=== PATIENT | male | born 1945 | race Caucasian/White ===

== ENCOUNTER 2016-05-06 19:56 | Observation (INO) | payer MEDICAID, OTHER ==
[2016-05-06] MEDS ORDERED: Sodium Chloride 0.9% 10 ML Syringe FLUSH PRN ×2 (20:23→22:47)
[2016-05-06] MEDS ORDERED: Sodium Chloride 0.9% 2.5 ML Syringe FLUSH PRN ×2 (20:23→22:47)
[2016-05-06] MEDS ORDERED: Nitroglycerin 2% Oint 1 GM UD Packet TOP ONE (20:23)
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
[2016-05-06] MEDS ORDERED: atorvaSTATin 20 MG Tab PO SCH (21:00)
[2016-05-06] MEDS ORDERED: Morphine 2 MG/ML Syringe IVPUSH PRN (22:47)
[2016-05-06] MEDS ORDERED: Ondansetron 4 MG/2 ML SDV IVPUSH PRN (22:47)
[2016-05-06] MEDS: Labetalol 100 MG Tab PO SCH (23:13)
[2016-05-07] MEDS ORDERED: Pantoprazole 40 MG Tab.CR PO SCH (07:30)
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
[2016-05-07] MEDS: Labetalol 100 MG Tab PO SCH (08:49)
[2016-05-07] MEDS ORDERED: Hydrochlorothiazide 12.5 MG Cap PO SCH (09:00)
[2016-05-07] MEDS ORDERED: Lisinopril 10 MG Tab PO SCH (09:00)
[2016-05-07] MEDS ORDERED: cloNIDine 0.1 MG Tab PO SCH (09:00)
[2016-05-07 13:07] VITALS: BP 117/69
--- NOTE | 2016-05-07 14:07 | CR ---
EXAM DATE: 05/06/16 PATIENT'S AGE: 70 Patient: BIBI VERDUZCO Facility: [place], [place] Site . Site : [id number] Study: XRay Chest [id number]/16/2017 8:50:05 PM Ordering Physician: Mohit Doherty Final Report: INDICATION: chest pain TECHNIQUE: Chest 1 view. COMPARISON: 03/21/16 FINDINGS: Cardiovascular and mediastinum: Heart size and vasculature are normal in caliber and appearance. Mediastinum is within normal limits. Lungs and pleural space: Lungs are clear. No sign of infiltrate or mass. No sign of pleural effusion. No pneumothorax. Bones and soft tissues: No significant findings. IMPRESSION: Unremarkable chest. Dictated by: Alin Murphy MD @ 05/06/2016 20:54:55 (Electronic Signature) Report Signed by Proxy and Original Signed Document filed in the Medical Record. MTDD
[2016-05-07] MEDS ORDERED: Aspirin 81 MG Tab.Chew PO SCH (21:00)
[2016-05-07] MEDS ORDERED: atorvaSTATin 20 MG Tab PO SCH (21:00)
== END 2016-05-07 12:45 ==
LOC: MW.ED 19:56 → MW.MS 21:38
PROVIDERS: ADMIT Internal Medicine; ATTEND Internal Medicine
DX: R07.89 Other chest pain (principal); I10 Essential (primary) hypertension; K29.80 Duodenitis without bleeding; B96.81 Helicobacter pylori [H. pylori] as the cause of diseases classified elsewhere; I69.30 Unspecified sequelae of cerebral infarction; I25.2 Old myocardial infarction; E78.5 Hyperlipidemia, unspecified; I25.10 Atherosclerotic heart disease of native coronary artery without angina pectoris; E78.00 Pure hypercholesterolemia, unspecified; K21.9 Gastro-esophageal reflux disease without esophagitis; Z87.891 Personal history of nicotine dependence; Z79.82 Long term (current) use of aspirin; Z79.899 Other long term (current) drug therapy; Z98.890 Other specified postprocedural states
CPT/HCPCS: 36415; 71010; 80053; 82150; 83690; 84484; 85025; 85610; 86677; 93005; 99285; A9270; G0378

== ENCOUNTER 2016-07-01 11:31 | Emergency (ER) | payer BC, MEDICAID, MEDICARE, OTHER ==
[2016-07-01] MEDS ORDERED: Aspirin 81 MG Tab.Chew PO ONE (11:33)
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
[2016-07-01] MEDS ORDERED: Sodium Chloride 0.9% 250 ML IV ONE (12:22)
[2016-07-01] MEDS ORDERED: Metoprolol Tartrate 5 MG/5 ML SDV IVPUSH SCH (12:30)
[2016-07-01] MEDS ORDERED: Nitroglycerin 0.4 MG Tab.SL SL PRN (13:03)
[2016-07-01] MEDS ORDERED: Nitroglycerin 0.4 MG Tab.SL ONE (13:03)
[2016-07-01] MEDS ORDERED: Nitroglycerin 2% Oint 1 GM UD Packet TOP ONE (13:04)
[2016-07-01 13:15] VITALS: BP 141/63
--- NOTE | 2016-07-01 13:34 | CR ---
EXAMINATION: Portable chest radiograph. HISTORY: Chest pain. FINDINGS: The trachea is midline. The cardiomediastinal silhouette is within normal limits. No pulmonary infil trates, effusions or pneumothorax. There is scarring within the apices. Osseous structures appear unremarkable. IMPRESSION: No acute cardiopulmonary process.
== END 2016-07-01 13:45 | disposition other institution (70) ==
LOC: MW.ED 11:31
DX: I24.9 Acute ischemic heart disease, unspecified (principal); E78.00 Pure hypercholesterolemia, unspecified; I25.10 Atherosclerotic heart disease of native coronary artery without angina pectoris; I10 Essential (primary) hypertension; I25.2 Old myocardial infarction; Z87.891 Personal history of nicotine dependence; Z79.82 Long term (current) use of aspirin; Z79.899 Other long term (current) drug therapy; Z86.73 Personal history of transient ischemic attack (TIA), and cerebral infarction without residual deficits
CPT/HCPCS: 36415; 71010; 80053; 84484; 85025; 93005; 99285; A9270; J7040